=== PATIENT | male | born 1965 | race Caucasian/White ===

== ENCOUNTER 2016-07-17 09:20 | Emergency (ER) | payer OTHER ==
[2016-07-17 09:29] VITALS: PULSE 90; TEMP 98; BMI 43.0
--- NOTE | 2016-07-17 09:39 | PDOC ---
History of Present Illness - General Chief Complaint: Injury Stated Complaint: BACK PAIN S/P FALL Time Seen by Provider: 07/17/16 09:31 History Source: Patient Exam Limitations: No Limitations - History of Present Illness Initial Comments: 51 yo M history asthma presents with back and shoulder pain s/p mechanical fall. He states that he slipped on black ice, landing on his lower back. He states that he is pretty certain he did not hit his head, but that he feels as though his neck quickly moved. He c/o dizzy feeling. Denies RAZO, weakness, numbness. +Pain to L shoulder with ROM. +Pain to low back with ROM. Ambulating without difficulty. Past History - Past Medical History Allergies/Adverse Reactions: Allergies Allergy/AdvReac Type Severity Reaction Status Date / Time azithromycin [From Zithromax] Allergy Verified 07/17/16 09:22 Macrolide Antibiotics Allergy Verified 07/17/16 09:22 Home Medications: Ambulatory Orders Albuterol Sulfate Inhaler - [Ventolin HFA Inhaler -] 2 puff IH Q6H PRN #1 inhaler 07/17/16 Budesonide/Formeterol Fumarate [SYMBICORT 80/4.5mcg -] 1 inh PO BID 07/17/16 Fluticasone/Salmeterol [Advair 250-50 Diskus] 1 each IH DAILY #1 disk.w.dev Montelukast Na [Singulair -] 10 mg PO HS #30 tablet 07/17/16 Tiotropium [place] [Spiriva] 1 puff IH DAILY #1 inh 07/17/16 Asthma: Yes Hypercholesterolemia: Yes - Immunization History Immunization Up to Date: Yes - Psycho/Social/Smoking Cessation Hx Anxiety: No Suicidal Ideation: No Smoking History: Never smoked Have you smoked in the past 12 months: No Information on smoking cessation initiated: No Hx Alcohol Use: Yes (OCCASIONAL) Drug/Substance Use Hx: No Substance Use Type: None Hx Substance Use Treatment: No Review of Systems - Review of Systems Able to Perform ROS?: Yes Comments:: GENERAL/CONSTITUTIONAL: No fever or chills. No weakness. HEAD, EYES, EARS, NOSE AND THROAT: No change in vision. No ear pain or discharge. No sore throat. CARDIOVASCULAR: No chest pain or shortness of breath. RESPIRATORY: No cough, wheezing, or hemoptysis. GASTROINTESTINAL: No nausea, vomiting, diarrhea or constipation. GENITOURINARY: No dysuria, frequency, or change in urination. MUSCULOSKELETAL: No joint or muscle swelling or pain. +Low back pain. SKIN: No rash NEUROLOGIC: No headache, vertigo, loss of consciousness, or change in strength/ sensation. ENDOCRINE: No increased thirst. No abnormal weight change. HEMATOLOGIC/LYMPHATIC: No anemia, easy bleeding, or history of blood clots. ALLERGIC/IMMUNOLOGIC: No hives or skin allergy. *Physical Exam - Vital Signs Last Vital Signs Temp Pulse Resp BP Pulse Ox 98 F 90 16 142/107 100 07/17/16 09:25 07/17/16 09:25 07/17/16 09:25 07/17/16 09:25 07/17/16 09:25 - Physical Exam Comments: GENERAL: Awake, alert, and fully oriented, in no acute distress HEAD: No signs of trauma EYES: PERRLA, EOMI, sclera anicteric, conjunctiva clear ENT: Auricles normal inspection, hearing grossly normal, nares patent, oropharynx clear without exudates. Moist mucosa NECK: Normal ROM, supple, no lymphadenopathy, JVD, or masses LUNGS: Breath sounds equal, clear to auscultation bilaterally. No wheezes, and no crackles HEART: Regular rate and rhythm, normal S1 and S2, no murmurs, rubs or gallops ABDOMEN: Soft, nontender, normoactive bowel sounds. No guarding, no rebound. No masses EXTREMITIES: L shoulder with tenderness over the L anterior deltoids with muscle spasm, FROM. Remainder of extremities with normal range of motion, no edema. No clubbing or cyanosis. No cords, erythema, or tenderness NEUROLOGICAL: Cranial nerves II through XII grossly intact. Normal speech, normal gait. Motor and sensation intact. SKIN: Warm, Dry, normal turgor, no rashes or lesions noted. SPINE: +Mild midline tenderness C4-7, no stepoffs. +Midline tenderness L3-5, no stepoffs. Medical Decision Making - Medical Decision Making Obtained CTH, CT c-spine, XR l-spine, XR L shoulder, XR L clavicle- no acute findings. Stable for DC home. *DC/Admit/Observation/Transfer Diagnosis at time of Disposition: Contusion Qualifiers: Encounter type: initial encounter Contusion area: lower back Qualified Code(s) : S30.0XXA - Contusion of lower back and pelvis, initial encounter Low back strain Qualifiers: Encounter type: initial encounter Qualified Code(s): S39.012A - Strain of muscle, fascia and tendon of lower back, initial encounter Neck muscle strain Qualifiers: Encounter type: initial encounter Qualified Code(s): S16.1XXA - Strain of muscle, fascia and tendon at neck level, initial encounter Shoulder contusion Qualifiers: Encounter type: initial encounter Laterality: left Qualified Code(s): S40.012A - Contusion of left shoulder, initial encounter - Discharge Dispostion Disposition: HOME Condition at time of disposition: Stable Admit: No - Prescriptions Prescriptions: Fluticasone/Salmeterol [Advair 250-50 Diskus] 1 each IH DAILY #1 disk.w.dev Montelukast Na [Singulair -] 10 mg PO HS #30 tablet Tiotropium [place] [Spiriva] 1 puff IH DAILY #1 inh Albuterol Sulfate Inhaler - [Ventolin HFA Inhaler -] 2 puff IH Q6H PRN #1 inhaler PRN Reason: Short Of Breath/Wheezing - Patient Instructions Printed Discharge Instructions: DI for Cervical Muscle Strain, DI for Shoulder Pain, DI for Back Strain or Sprain
[2016-07-17] MEDS ORDERED: ACETAMINOPHEN 325 MG TABLET (FP) PO ONE (09:51)
[2016-07-17] MEDS ORDERED: ACETAMINOPHEN 325 MG TABLET (FP) ONE (09:58)
[2016-07-17 10:40] VITALS: BP 125/75
== END 2016-07-17 11:54 | disposition home or self-care (01) ==
LOC: FER 09:20
DX: S30.0XXA Contusion of lower back and pelvis, initial encounter (principal); S39.012A Strain of muscle, fascia and tendon of lower back, initial encounter; S16.1XXA Strain of muscle, fascia and tendon at neck level, initial encounter; S40.012A Contusion of left shoulder, initial encounter; W00.0XXA Fall on same level due to ice and snow, initial encounter; Y93.89 Activity, other specified; Y92.410 Unspecified street and highway as the place of occurrence of the external cause; J45.909 Unspecified asthma, uncomplicated; E78.00 Pure hypercholesterolemia, unspecified
CPT/HCPCS: 70450-TC; 72100-TC; 72125-TC; 73000-TC-LT; 73030-TC-LT; 99283-25

== ENCOUNTER 2016-07-29 14:57 | Emergency (ER) | payer OTHER ==
[2016-07-29 15:02] VITALS: BP 156/91; PULSE 102; TEMP 99.8; BMI 46.7
--- NOTE | 2016-07-29 15:16 | PDOC ---
History of Present Illness - General History Source: Patient Exam Limitations: No Limitations - History of Present Illness Initial Comments: 07/29/16 15:45 The patient is a 51 year old male, with a significant past medical history of asthma and hyperlipidemia, who presents to the emergency department complaining of a productive cough for approximately 1 week. The patient reports his cough is productive of yellow/green sputum.The patient reports his sputum has an odor. He reports voice hoarseness, chills, body aches, stiffness, and feeling generally tired. The patient reports he is currently living at a homeless fpc, where he has had exposure to sick contacts and smokers(although he has not inhaled the fumes). He states his muscle stiffness could be due to standing all day at his job. The patient denies any fever, headache, or dizziness. The patient denies any chest pain, shortness of breath, diaphoresis, or palpitations. The patient denies any abdominal pain, nausea, vomiting, diarrhea , constipation, or changes in urination patterns. The patient denies any recent travel Allergies: Azithromycin, Macrolide antibiotics Past Surgical History: None reported. Social History: Non-smoker. Denies alcohol or drug use. <Akiko Brian - Last Filed: 07/29/16 17:21> - General History Source: Patient Exam Limitations: No Limitations <Barbi Duncan - Last Filed: 07/31/16 07:59> - General Chief Complaint: Cold Symptoms Stated Complaint: COUGH Time Seen by Provider: 07/29/16 15:04 Past History <Akiko Brian - Last Filed: 07/29/16 17:21> - Past Medical History Asthma: Yes Hypercholesterolemia: Yes - Immunization History Immunization Up to Date: Yes - Psycho/Social/Smoking Cessation Hx Anxiety: No Suicidal Ideation: No Smoking History: Never smoked Have you smoked in the past 12 months: No Hx Alcohol Use: No Drug/Substance Use Hx: No Substance Use Type: None Hx Substance Use Treatment: No <Barbi Duncan - Last Filed: 07/31/16 07:59> - Past Medical History Allergies/Adverse Reactions: Allergies Allergy/AdvReac Type Severity Reaction Status Date / Time azithromycin [From Zithromax] Allergy Verified 07/29/16 14:58 Macrolide Antibiotics Allergy Verified 07/29/16 14:58 Home Medications: Ambulatory Orders Albuterol Sulfate Inhaler - [Ventolin HFA Inhaler -] 2 puff IH Q6H PRN #1 inhaler 07/17/16 Budesonide/Formeterol Fumarate [SYMBICORT 80/4.5mcg -] 1 inh PO BID 07/17/16 Fluticasone/Salmeterol [Advair 250-50 Diskus] 1 each IH DAILY #1 disk.w.dev Montelukast Na [Singulair -] 10 mg PO HS #30 tablet 07/17/16 Tiotropium [place] [Spiriva] 1 puff IH DAILY #1 inh 07/17/16 Albuterol 0.083% Nebulizer Lisa [Ventolin 0.083% Nebulizer Soln -] 1 neb NEB Q6H PRN #30 vial 07/29/16 Amoxicillin/Potassium Clav [Augmentin 875-125 Tablet] 1 each PO BID #14 tablet 07/29/16 Nebulizer/Compressor [Comp-Air Elite Comp Nebulizer] 1 each MC ASDIR PRN #1 each 07/29/16 Prednisone [Deltasone] 60 mg PO DAILY #12 tablet 07/29/16 Review of Systems - Review of Systems Able to Perform ROS?: Yes Comments:: 07/29/16 15:46 GENERAL/CONSTITUTIONAL: +Chills, +body aches, +tired. No: fever, weakness, loss of appetite. HEAD, EYES, EARS, NOSE AND THROAT: Yes: +voice hoarseness. No: change in vision , ear pain, discharge, sore throat, throat swelling. CARDIOVASCULAR: No: chest pain, lightheadedness, palpitations, syncope RESPIRATORY: Yes: +cough productive of odorous yellow/green sputum. No: shortness of breath, wheezing, hemoptysis, stridor. GASTROINTESTINAL: No: nausea, vomiting, abdominal cramping, diarrhea, rectal bleeding, constipation. GENITOURINARY: No: dysuria, hematuria, frequency, urgency, flank pain. MUSCULOSKELETAL: Yes: +muscle stiffness.No: back pain, neck pain, joint pain, muscle swelling SKIN AND BREASTS: No: lesions, pallor, rash or easy bruising. NEUROLOGIC: No: headache, vertigo, paresthesias, weakness ENDOCRINE: No: unexplained weight gain or loss HEMATOLOGIC/LYMPHATIC: No: anemia, easy bleeding, swelling nodes <Brian,Giomilsy - Last Filed: 07/29/16 17:21> *Physical Exam - Vital Signs Last Vital Signs Temp Pulse Resp BP Pulse Ox 99.8 F H 102 H 17 156/91 96 07/29/16 14:58 07/29/16 14:58 07/29/16 14:58 07/29/16 14:58 07/29/16 14:58 - Physical Exam Comments: 07/29/16 15:46 GENERAL: The patient is in no acute distress. HEAD: Normal with no signs of trauma. EYES: PERRLA, EOMI, sclera anicteric, conjunctiva clear. ENT: Ears normal, nares patent, oropharynx clear without exudates. Moist mucous membranes. NECK: Normal range of motion, supple without lymphadenopathy, JVD, or masses. LUNGS: [place] breath sounds bilaterally. No wheezes, and no crackles. HEART: Regular rate and rhythm, normal S1 and S2 without murmur, rub or gallop. ABDOMEN: Soft, nontender, normoactive bowel sounds. No guarding, no rebound. EXTREMITIES: Normal range of motion, no edema. No clubbing or cyanosis. No erythema, or tenderness. NEUROLOGICAL: Cranial nerves II through XII grossly intact. Normal speech. No focal neurological deficits. MUSCULOSKELETAL: Back non-tender to palpation, no CVA tenderness SKIN: Warm, Dry, normal turgor, no rashes or lesions noted. <Brian,Giomilsy - Last Filed: 07/29/16 17:21> - Vital Signs Last Vital Signs Temp Pulse Resp BP Pulse Ox 99.8 F H 102 H 17 156/91 96 07/29/16 14:58 07/29/16 14:58 07/29/16 14:58 07/29/16 14:58 07/29/16 14:58 <Barbi Duncan - Last Filed: 07/31/16 07:59> ED Treatment Course - LABORATORY CBC & Chemistry Diagram: 07/29/16 15:50 07/29/16 15:50 - RADIOLOGY Radiograph Interpretation: 07/29/16 17:21 EXAM: CXR INTERPRETED BY: Dr. Saunders REVIEWED BY: Dr. Duncan IMPRESSION: Bilateral perihilar increased lung marking without evidence of acute lung disease. - Medications Given in the ED: ED Medications Discontinued Medications Generic Name Dose Route Start Last Admin Trade Name Roldan PRN Reason Stop Dose Admin Albuterol/Ipratropium 1 amp 07/29/16 15:31 07/29/16 15:37 Duoneb - NEB 07/29/16 15:32 1 amp ONCE ONE Administration Prednisone 60 mg 07/29/16 15:28 07/29/16 15:37 Deltasone - PO 07/29/16 15:29 60 mg ONCE ONE Administration <Akiko Brian - Last Filed: 07/29/16 17:21> - LABORATORY CBC & Chemistry Diagram: 07/29/16 15:50 07/29/16 15:50 <Barbi Duncan - Last Filed: 07/31/16 07:59> Medical Decision Making - Medical Decision Making 07/29/16 15:16 A portion of this note was documented by scribe services under my direction. I have reviewed the details of the note, within reason, and agree with the documentation with the following case summary and management plan written by me. Nursing documentation reviewed and incorporated into medical decision making 07/29/16 17:10 This is a 51 yo M with a history of morbid obesity and asthma presents to the ER with a complaint of wheezing and productive cough Symptoms have been present for the past week HE has not been on either abx, steroids or abx (+) chills No chest pain No palpitations No lower extremity edema Pt currently is living in a fpc On examination Speaking in clear sentences Right Tonsillar enlargement, no exudate insp and exp wheezing tachycardiac, no murmur appreciated no abd tenderness no lower extremity edema Labs as expected for pt on steroids CXR : refused prior xray : no infiltrate Laboratory Tests 07/29/16 07/29/16 15:50 15:50 WBC 13.8 H D Hgb 14.2 D Hct 42.2 Plt Count 348 Neutrophils % 69.6 Lymphocytes % 21.2 BUN 15 D Creatinine 0.9 D 07/29/16 17:11 Will discharge to home follow up with [facility] Return to the ER for any other concerns or complaints Clinical Impression:Asthma Exacerbation <Barbi Duncan - Last Filed: 07/31/16 07:59> *DC/Admit/Observation/Transfer - Attestations Scribe Attestion: 07/29/16 15:47 Documentation prepared by Akiko Brian, acting as medical csr for Barbi Duncan MD. <Akiko Brian - Last Filed: 07/29/16 17:21> - Discharge Dispostion Admit: No <Barbi Duncan - Last Filed: 07/31/16 07:59> Diagnosis at time of Disposition: Acute exacerbation of COPD with asthma Asthma with exacerbation Qualifiers: Asthma severity: moderate persistent Qualified Code(s): J45.41 - Moderate persistent asthma with (acute) exacerbation - Discharge Dispostion Disposition: HOME Condition at time of disposition: Stable - Prescriptions Prescriptions: Amoxicillin/Potassium Clav [Augmentin 875-125 Tablet] 1 each PO BID #14 tablet Nebulizer/Compressor [Comp-Air Elite Comp Nebulizer] 1 each MC ASDIR PRN #1 each PRN Reason: congestion Prednisone [Deltasone] 60 mg PO DAILY #12 tablet Albuterol 0.083% Nebulizer Lisa [Ventolin 0.083% Nebulizer Soln -] 1 neb NEB Q6H PRN #30 vial PRN Reason: Wheezing - Patient Instructions Printed Discharge Instructions: DI for Viral Upper Respiratory Infection -- Adult, DI for Asthma -- Adult Additional Instructions: Mr. Sheriff Thank you for coming in to the ER Please take medications as prescribed Please monitor your temperature Please follow up with a primary care physician (you can go to [address] [place] [address] if you do not have a physician) Please consider following up with a pulmonary physician Please return to the ER if you do not improve
[2016-07-29] MEDS ORDERED: predniSONE 20 MG TABLET (UD) PO ONE (15:28)
[2016-07-29] MEDS ORDERED: ALBUTEROL SO4 2.5/IPRATROPIUM 0.5 INH SOL 3 ML VIAL.NEB. NEB ONE ×4 (15:31→16:02)
[2016-07-29] MEDS ORDERED: LEVOFLOXACIN 500 MG TABLET (FP) ONE (15:34)
[2016-07-29] MEDS ORDERED: LEVOFLOXACIN 250 MG TABLET (FP) ONE (15:34)
[2016-07-29] MEDS ORDERED: predniSONE 20 MG TABLET (UD) ONE (15:34)
[2016-07-29] MEDS ORDERED: LEVOFLOXACIN 250 MG TABLET (FP) PO ONE (15:39)
[2016-07-29 16:20] LABS: BASOPHIL 0.6 % (0-2.0); EOSINOPHIL 2.2 % (0-4.5); MCHC 33.6 g/dl (32.0-35.9); MEAN CELL VOLUME 86.5 fl (80-96); MEAN PLT VOLUME 8.2 fl (7.5-11.1); NEUTROPHILS 69.6 % (42.8-82.8); PLATELET COUNT 348 K/MM3 (134-434); RDW 15.1 % (11.9-15.9); WHITE BLOOD COUNT 13.8 K/mm3 (4.0-10.0)
[2016-07-29 16:45] LABS: ALBUMIN 3.8 g/dl (3.5-5.0); ALK PHOS 58 U/L (32-92); ANION GAP 5 (8-16); BILIRUBIN,TOTAL 0.5 mg/dl (0.2-1.0); CALCIUM 8.8 mg/dl (8.4-10.2); CO2 25 mmol/L (22-28); CREATININE 0.9 mg/dl (0.6-1.3); GLUCOSE,RANDOM 85 mg/dl (74-106); SGOT/AST 35 U/L (10-42); SGPT/ALT 23 U/L (10-40); TOT PROT 7.2 g/dl (6.4-8.3)
[2016-07-30] MEDS ORDERED: LEVOFLOXACIN 750 MG TABLET PO ONE (15:30)
== END 2016-07-29 17:33 | disposition home or self-care (01) ==
LOC: FER 14:57
PROC: 3E0F7GC Introduction of Other Therapeutic Substance into Respiratory Tract, Via Natural or Artificial Opening (ICD-10-PCS; principal; 2016-07-29)
DX: J45.41 Moderate persistent asthma with (acute) exacerbation (principal); J44.1 Chronic obstructive pulmonary disease with (acute) exacerbation; J45.909 Unspecified asthma, uncomplicated
CPT/HCPCS: 36415; 71020-TC; 80053; 85025; 94640; 99281-25

== ENCOUNTER 2016-08-29 19:08 | Emergency (ER) | payer OTHER ==
--- NOTE | 2016-08-29 19:14 | PDOC ---
History of Present Illness - History of Present Illness Initial Comments: 08/29/16 19:53 Patient is a 51 year old male who is presenting to the ED who is complaining of chronic discomfort to right lower extremity and difficulty ambulation since his fall on 07/17/16. Patient felt his symptoms were worse today after he went to work for the first time since the fall. The patient works as a cyber security consultant for [employer] and reports standing all day for 8-12 hours. Today the patient felt by the end of his shift he was unable to bear weight so he came in for evaluation. The patient also endorses some lower back pain and knee pain as well, for which he has been receiving physical therapy treatment. The patient has not seen an orthopedist for his pain. He has been taking aleve with mild relief. Denies any numbness, tingling, or weakness. PAST MEDICAL HISTORY: Asthma, HLD PAST SURGICAL HISTORY: no significant history FAMILY HISTORY: no pertinent history SOCIAL HISTORY: Pt lives with family and is employed. MEDICATIONS: reviewed ALLERGIES: As per nursing notes General: No fevers or chills, no weakness, no weight loss HEENT: No change in vision. No sore throat,. No ear pain CardioVascular: No chest pain or shortness of breath Respiratory:No cough, or wheezing. Gastrointestinal: no nausea, vomiting, diarrhea or constipation, No rectal bleeding Genitourinary: No dysuria, hematuria, or frequency Musculoskeletal: Right lower extremity discomfort, knee pain, lower back pain. No joint or muscle swelling Neurologic: No headache, vertigo, dizziness or loss of consciousness Psychiatric: nor depression Skin: No rashes or easy bruising Endocrine: no increased thirst or abnormal weight change Allergic: no skin or latex allergy All other systems reviewed and normal GENERAL: Morbidly obese male. The patient is awake, alert, and fully oriented, in no acute distress. HEAD: Normal with no signs of trauma. EYES: Pupils equal, round and reactive to light, extraocular movements intact, sclera anicteric, conjunctiva clear. EXTREMITIES: No calf tenderness. Bilateral mild venous stasis. Normal range of motion. Able to bare weight and walk without difficulty. Neurovascularly intact. NEUROLOGICAL: Normal speech, normal gait. PSYCH: Normal mood, normal affect. SKIN: Warm, Dry, normal turgor, no rashes or lesions noted. <Julissa Jennings - Last Filed: 08/29/16 19:53> - General History Source: Patient Exam Limitations: No Limitations - History of Present Illness Initial Comments: 08/29/16 21:21 Assessment and plan: This is a morbidly obese 51-year-old male who comes in complaining of the difficulty standing and ambulating. Patient fell approximately 12 days ago and since then has not been working. Patient's work involves standing and walking for 8-12 hours. Patient most likely has become deconditioned secondary to not performing his normal daily amount of activity. Patient attempted to go back to work today and by the end of his shift was very fatigued and felt like he could not stand and move as well as he did prior to his fall. Patient's exam was unremarkable for any acute pathology however secondary to his extreme obesity and deconditioning he was referred to an orthopedist and may need additional physical therapy or interventions prior to being able to return to work and to his job. <Uvaldo Harry I - Last Filed: 08/29/16 21:25> - General Chief Complaint: Pain Stated Complaint: LT LEG STRAIN Time Seen by Provider: 08/29/16 19:13 Past History <Julissa Jennings - Last Filed: 08/29/16 19:53> - Past Medical History Asthma: Yes Hypercholesterolemia: Yes - Immunization History Immunization Up to Date: Yes - Psycho/Social/Smoking Cessation Hx Anxiety: No Suicidal Ideation: No Smoking History: Never smoked Have you smoked in the past 12 months: No Hx Alcohol Use: No Drug/Substance Use Hx: No Substance Use Type: None Hx Substance Use Treatment: No <Uvaldo Harry I - Last Filed: 08/29/16 21:25> - Past Medical History Allergies/Adverse Reactions: Allergies Allergy/AdvReac Type Severity Reaction Status Date / Time azithromycin [From Zithromax] Allergy Verified 07/29/16 14:58 Macrolide Antibiotics Allergy Verified 07/29/16 14:58 Penicillins Allergy Verified 08/29/16 19:27 Home Medications: Ambulatory Orders Albuterol Sulfate Inhaler - [Ventolin HFA Inhaler -] 2 puff IH Q6H PRN #1 inhaler 07/17/16 Budesonide/Formeterol Fumarate [SYMBICORT 80/4.5mcg -] 1 inh PO BID 07/17/16 Fluticasone/Salmeterol [Advair 250-50 Diskus] 1 each IH DAILY #1 disk.w.dev Montelukast Na [Singulair -] 10 mg PO HS #30 tablet 07/17/16 Tiotropium [place] [Spiriva] 1 puff IH DAILY #1 inh 07/17/16 *Physical Exam - Vital Signs Last Vital Signs Temp Pulse Resp BP Pulse Ox 98.5 F 95 H 18 152/100 96 08/29/16 19:09 08/29/16 19:09 08/29/16 19:09 08/29/16 19:09 08/29/16 19:09 <Julissa Jennings - Last Filed: 08/29/16 19:53> *DC/Admit/Observation/Transfer - Attestations Scribe Attestion: 08/29/16 20:05 Documentation prepared by Julissa Jennings, acting as medical chief technician for Uvaldo Harry MD. <Julissa Jennings - Last Filed: 08/29/16 19:53> - Discharge Dispostion Admit: No <Uvaldo Harry I - Last Filed: 08/29/16 21:25> Diagnosis at time of Disposition: Strain of right knee Qualifiers: Encounter type: initial encounter Qualified Code(s): S86.911A - Strain of unspecified muscle(s) and tendon(s) at lower leg level, right leg, initial encounter - Discharge Dispostion Disposition: HOME Condition at time of disposition: Stable - Patient Instructions Additional Instructions: Continue to take ibuprofen or Aleve as needed for pain and instructed on the bottle. Follow-up with an orthopedist if you need an orthopedist call Dr. Whalen at for an appointment on Wednesday. Return to the emergency department immediately with ANY new, persistent or worsening symptoms. Continue any medications as previously prescribed by your physician. You should follow up with your primary doctor as soon as possible regarding today's emergency department visit. . Please make sure your doctor reviews the results of your emergency evaluation. Thank you for coming to the Emergency Department today for your care. It was a pleasure to see you today. Please note that your evaluation is INCOMPLETE until you follow-up with your doctor. - Post Discharge Activity Work/School Note: Back to Work
[2016-08-29 19:34] VITALS: BP 152/100; PULSE 95; TEMP 98.5; BMI 45.1
[2016-08-29] MEDS ORDERED: KETOROLAC TROMETHAMINE 60 MG/2 ML VIAL IM ONE (20:08)
[2016-08-29] MEDS ORDERED: KETOROLAC TROMETHAMINE 60 MG/2 ML VIAL ONE (20:12)
== END 2016-08-29 20:15 | disposition home or self-care (01) ==
LOC: FER 19:08
PROC: 3E0233Z Introduction of Anti-inflammatory into Muscle, Percutaneous Approach (ICD-10-PCS; principal; 2016-08-29)
DX: S86.911A Strain of unspecified muscle(s) and tendon(s) at lower leg level, right leg, initial encounter (principal); X58.XXXA Exposure to other specified factors, initial encounter; Y93.9 Activity, unspecified; Y92.9 Unspecified place or not applicable; Y99.0 Civilian activity done for income or pay; E66.01 Morbid (severe) obesity due to excess calories; Z68.42 Body mass index [BMI] 45.0-49.9, adult; E78.5 Hyperlipidemia, unspecified; J45.909 Unspecified asthma, uncomplicated
CPT/HCPCS: 99282-25

== ENCOUNTER 2016-10-26 15:15 | Emergency (ER) | payer OTHER ==
[2016-10-26 15:22] VITALS: BP 158/88; PULSE 100; TEMP 99; BMI 43.8
--- NOTE | 2016-10-26 15:25 | PDOC ---
History of Present Illness - General History Source: Patient Exam Limitations: No Limitations - History of Present Illness Initial Comments: 10/26/16 19:24 The patient is a 51 year old male, with a significant past medical history of asthma, hyperlipidemia, and HTN, who presents to the emergency department complaining of a productive cough for approximately 1 week. The patient reports his cough is productive of yellow/green sputum. The patient reports his sputum has an odor. He reports associated nasal congestion, subjective fevers, chills, body aches, stiffness, and feeling generally tired. He also reports 1x of diarrhea today. Patient states he was seen at another hospital a few days ago. He had chest x- ray done which came back negative. He was discharged after nebulizer treatment and IM steroids, but reports that his symptoms came back one hour after leaving the ED. The patient reports he is currently living at a homeless [facility]pc, where he has had exposure to sick contacts and smokers (although he has not inhaled the fumes ). 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 The patient denies any chest pain, diaphoresis, or palpitations. The patient denies any abdominal pain, nausea, vomiting, constipation, or changes in urination patterns. Pt denies any hemoptysis, leg swelling, night sweats, weight loss. Allergies: Azithromycin, Macrolide antibiotics Social History: Non-smoker. Drinks alcohol occasionally. Denies drug use. <Maik Harrington - Last Filed: 10/26/16 19:24> <Lambert Holland - Last Filed: 10/28/16 07:39> - General Chief Complaint: Respiratory Stated Complaint: COUGH Time Seen by Provider: 10/26/16 15:19 Past History <Maik Harrington - Last Filed: 10/26/16 19:24> - Past Medical History Asthma: Yes Hypercholesterolemia: Yes - Immunization History Immunization Up to Date: Yes - Psycho/Social/Smoking Cessation Hx Anxiety: No Suicidal Ideation: No Smoking History: Never smoked Have you smoked in the past 12 months: No Information on smoking cessation initiated: No Hx Alcohol Use: No Drug/Substance Use Hx: No Substance Use Type: None Hx Substance Use Treatment: No <Lambert Holland - Last Filed: 10/28/16 07:39> - Past Medical History Allergies/Adverse Reactions: Allergies Allergy/AdvReac Type Severity Reaction Status Date / Time azithromycin [From Zithromax] Allergy Verified 10/26/16 15:18 Macrolide Antibiotics Allergy Verified 10/26/16 15:18 Penicillins Allergy Verified 10/26/16 15:18 Home Medications: Ambulatory Orders Montelukast Na [Singulair -] 10 mg PO HS #30 tablet 07/17/16 Tiotropium [place] [Spiriva] 1 puff IH DAILY #1 inh 07/17/16 Albuterol Sulfate Inhaler - [Ventolin HFA Inhaler -] 2 puff IH Q6H PRN #1 inhaler 10/26/16 Budesonide/Formeterol Fumarate [SYMBICORT 80/4.5mcg -] 1 inh PO BID #1 unit Doxycycline Hyclate 100 mg PO BID #14 capsule 10/26/16 Fluticasone/Salmeterol [Advair 250-50 Diskus] 1 each IH BID #1 unit 10/26/16 Guaifenesin AC [Robitussin AC -] 5 ml PO TID #50 ml MDD 15 10/26/16 Prednisone [Deltasone -] 40 mg PO DAILY #8 tablet 10/26/16 Review of Systems - Review of Systems Comments:: 10/26/16 19:24 CONSTITUTIONAL: + subjective fevers, weakness. No reported: Chills, Diaphoresis, Generalized Malaise, Loss of Appetite HEENT: +Rhinorrhea, No reported: Nasal Congestion, Throat Pain, Throat Swelling, Difficulty Swallowing, Mouth Swelling, Ear Pain, Eye Pain, Visual Changes CARDIOVASCULAR: No reported: Chest Pain, Syncope, Palpitations, Irregular Heart Rate, Lightheadedness, Peripheral Edema RESPIRATORY: + cough, shortness of breath No reported: SOB with Exertion, Orthopnea, Wheezing, Stridor, Hemoptysis GASTROINTESTINAL: No reported: Abdominal pain, Abdominal Distension, Nausea, Vomiting, Diarrhea, Constipation, Melena, Hematochezia GENITOURINARY: No reported: Dysuria, Frequency, Urgency, Hesitancy, Flank Pain, Genital Pain MUSCULOSKELETAL: No reported: Myalgia, Arthralgia, Joint Swelling, Back pain, Neck Pain SKIN: No reported: Rash, Itching, Pallor HEMEATOLOGIC/IMMUNOLOGIC: No reported: Easy Bleeding, Easy Bruising, Lymphadenopathy, Frequent infections ENDOCRINE: No reported: Unexplained Weight Gain, Unexplained Weight Loss, Heat Intolerance , Cold Intolerance NEUROLOGIC: No reported: Headache, Focal Weakness, Paresthesias, Vertigo, Lightheadedness, Unsteady Gait, Seizure, Mental Status Changes, Incontinence PSYCHIATRIC: No reported: Anxiety, Depression <Maik Harrington - Last Filed: 10/26/16 19:24> *Physical Exam - Vital Signs Last Vital Signs Temp Pulse Resp BP Pulse Ox 99 F 100 H 24 158/88 98 10/26/16 15:15 10/26/16 15:15 10/26/16 15:15 10/26/16 15:15 10/26/16 15:15 - Physical Exam Comments: 10/26/16 19:24 GENERAL: The patient is awake, alert, and fully oriented, Nontoxic - in no acute distress. Obese. HEAD: Normocephalic, atraumatic. EYES: extraocular movements intact, sclera anicteric, conjunctiva clear. ENT: Normal voice, Moist mucous membranes. NECK: Normal range of motion, supple LUNGS: Mild Wheezing diffusely. Moving air well. No rhonchi, no rales. speaking complete sentecnes HEART: Regular rate and rhythm, without murmur, rub or gallop. ABDOMEN: Soft, nontender, normoactive bowel sounds. No guarding, no rebound.No CVA tenderness EXTREMITIES: Trace edema of the lower extremities. Normal range of motion. no calf tenderness, neg homans. NEUROLOGICAL: No facial assymetry, Normal speech, PSYCH: Normal mood, normal affect. SKIN: Warm, Dry, normal turgor, <Maik Harrington - Last Filed: 10/26/16 19:24> - Vital Signs Last Vital Signs Temp Pulse Resp BP Pulse Ox 99 F 100 H 24 158/88 98 10/26/16 15:15 10/26/16 15:15 10/26/16 15:15 10/26/16 15:15 10/26/16 15:15 <Lambert Holland - Last Filed: 10/28/16 07:39> Heart Score/ECG Review - ECG Impressions Comment:: 10/26/16 19:52 Twelve-lead EKG was performed and reviewed by me. There is normal sinus rhythm with a normal rate. Rate of 99 The axis is normal. Short ND interval There is normal R wave progression There are no ST or T wave abnormalities. <Lambert Holland - Last Filed: 10/28/16 07:39> ED Treatment Course - LABORATORY CBC & Chemistry Diagram: 10/26/16 14:55 10/26/16 14:55 <Maik Harrington - Last Filed: 10/26/16 19:24> - LABORATORY CBC & Chemistry Diagram: 10/26/16 14:55 10/26/16 14:55 <Lambert Holland - Last Filed: 10/28/16 07:39> Medical Decision Making - Medical Decision Making 10/26/16 16:27 51M y hx of asthma, htn, hl, presents with coughing x 4 days assocated with nasal congestion, body aches. cough productive of yellowish sputum, no associated fevers. on exam the pts lungs show mild wheezing w/o rales. pt has intermittent spasms of coughing. suspect viral bronchitis with mild astham exacerbain will give nebs, steroids will obtain cxr robitussin AC for cough will reassess A portion of this note was documented by scribe services under my direction. I have reviewed the details of the note, within reason, and agree with the documentation with the following case summary and management plan written by me 10/26/16 18:53 pts labs reviewed noted for mild leukocytosis likely due to steroid use suspect bronchitis with mild astham will give nebs, abluterol steroids, abx will d/c with pmd fu return precautions were discussed Return to the emergency department immediately with ANY new, persistent or worsening symptoms. You MUST call and follow up with your doctor tomorrow for further evaluation of your symptoms. Results were discussed with you. Please make sure your doctor reviews the results of your emergency evaluation. If you had any xrays during your visit, it was read preliminarily by myself, a Radiologist will review it and if there are any additional findings we will call you. <Lambert Holland - Last Filed: 10/28/16 07:39> *DC/Admit/Observation/Transfer - Attestations Scribe Attestion: 10/26/16 19:24 Documentation prepared by Maik Harrington, acting as medical artist for Lambert Holland MD, MD. <Maik Harrington - Last Filed: 10/26/16 19:24> - Discharge Dispostion Admit: No <Lambert Holland - Last Filed: 10/28/16 07:39> Diagnosis at time of Disposition: Bronchitis Asthma with exacerbation Qualifiers: Asthma severity: unspecified severity Qualified Code(s): J45.901 - Unspecified asthma with (acute) exacerbation - Discharge Dispostion Disposition: HOME Condition at time of disposition: Improved - Prescriptions Prescriptions: Fluticasone/Salmeterol [Advair 250-50 Diskus] 1 each IH BID #1 unit Prednisone [Deltasone -] 40 mg PO DAILY #8 tablet Doxycycline Hyclate 100 mg PO BID #14 capsule Guaifenesin AC [Robitussin AC -] 5 ml PO TID #50 ml MDD 15 Budesonide/Formeterol Fumarate [SYMBICORT 80/4.5mcg -] 1 inh PO BID #1 unit Albuterol Sulfate Inhaler - [Ventolin HFA Inhaler -] 2 puff IH Q6H PRN #1 inhaler PRN Reason: Short Of Breath/Wheezing - Referrals Referrals: [facility] [Provider Group] - Patient Instructions Printed Discharge Instructions: DI for Acute Bronchitis, DI for Asthma -- Adult Additional Instructions: Return to the emergency department immediately with ANY new, persistent or worsening symptoms. Use your medications as prescribed. You MUST call and follow up with your doctor tomorrow for further evaluation of your symptoms. Results were discussed with you. Please make sure your doctor reviews the results of your emergency evaluation. Print Language: BURUNDIAN
[2016-10-26] MEDS ORDERED: ALBUTEROL SO4 2.5/IPRATROPIUM 0.5 INH SOL 3 ML VIAL.NEB. NEB ONE (15:46)
[2016-10-26] MEDS ORDERED: IPRATROPIUM BR 0.02% 0.5 MG/2.5 ML VIAL.NEB. NEB ONE (15:57)
[2016-10-26] MEDS ORDERED: ALBUTEROL SO4 0.083% IH SOL 2.5 MG/3 ML VIAL.NEB. NEB ONE (15:57)
[2016-10-26 16:06] LABS: MCH 28.9 pg (25.7-33.7); MCHC 33.1 g/dl (32.0-35.9); MEAN CELL VOLUME 87.1 fl (80-96); PLATELET COUNT 384 K/MM3 (134-434); RDW 14.7 % (11.9-15.9); WHITE BLOOD COUNT 16.9 K/mm3 (4.0-10.8)
[2016-10-26 16:25] LABS: ALBUMIN 3.7 g/dl (3.5-5.0); ALK PHOS 54 U/L (32-92); ANION GAP 9 (8-16); BILIRUBIN,TOTAL 0.5 mg/dl (0.2-1.0); CALCIUM 8.7 mg/dl (8.4-10.2); CO2 24 mmol/L (22-28); CREATININE 0.8 mg/dl (0.6-1.3); GLUCOSE,RANDOM 95 mg/dl (74-106); SGOT/AST 43 U/L (10-42); SGPT/ALT 33 U/L (10-40); TOT PROT 6.6 g/dl (6.4-8.3)
[2016-10-26] MEDS ORDERED: predniSONE 20 MG TABLET (UD) PO ONE (16:25)
[2016-10-26] MEDS ORDERED: guaiFENesin/CODEINE 10 ML UNIT-DOSE CUPS PO ONE (16:26)
[2016-10-26] MEDS ORDERED: guaiFENesin/CODEINE 10 ML UNIT-DOSE CUPS ONE (16:36)
[2016-10-26] MEDS ORDERED: predniSONE 20 MG TABLET (UD) ONE (16:36)
[2016-10-26 16:48] LABS: PLATELET ESTIMATE ADEQUATE (NORMAL)
[2016-10-26] MEDS ORDERED: methylPREDNISolone NA SUCC 125 MG/2 ML VIAL ONE (16:50)
[2016-10-26] MEDS ORDERED: methylPREDNISolone NA SUCC 125 MG/2 ML VIAL IVPB ONE (16:50)
--- NOTE | 2016-10-27 11:42 | EKG ---
Test Reason : Blood Pressure : / mmHG Vent. Rate : 099 BPM Atrial Rate : 099 BPM P-R Int : 094 ms QRS Dur : 088 ms QT Int : 338 ms P-R-T Axes : 056 036 026 degrees QTc Int : 433 ms SINUS RHYTHM WITH SHORT DE OTHERWISE NORMAL ECG NO PREVIOUS ECGS AVAILABLE Confirmed by SHAISTA HERNANDEZ, JOHANNA ([id number]) on 10/27/2016 11:42:04 AM Referred By: PIPE Confirmed By:JOHANNA NOONAN MD
== END 2016-10-26 19:14 | disposition home or self-care (01) ==
LOC: FER 15:15
PROC: 3E0F7GC Introduction of Other Therapeutic Substance into Respiratory Tract, Via Natural or Artificial Opening (ICD-10-PCS; principal; 2016-10-26)
PROC: 3E033GC Introduction of Other Therapeutic Substance into Peripheral Vein, Percutaneous Approach (ICD-10-PCS; 2016-10-26)
DX: J40 Bronchitis, not specified as acute or chronic (principal); J45.901 Unspecified asthma with (acute) exacerbation
CPT/HCPCS: 36415; 71020-TC; 80053; 83880; 85025; 93005; 99283-25

== ENCOUNTER 2017-04-24 23:38 | Emergency (ER) | payer OTHER ==
[2017-04-24 23:46] VITALS: BP 180/98; PULSE 103; BMI 51.6
[2017-04-24] MEDS ORDERED: ALBUTEROL SO4 2.5/IPRATROPIUM 0.5 INH SOL 3 ML VIAL.NEB. NEB ONE ×2 (23:56→23:57)
--- NOTE | 2017-04-24 23:59 | PDOC ---
History of Present Illness - General Chief Complaint: Asthma Stated Complaint: ASTHMA Time Seen by Provider: 04/24/17 23:46 - History of Present Illness Initial Comments: This 52-year-old man presents with a few day history of progressive nonproductive cough and occasional wheezing. Patient has long history of asthma with occasional episodes of bronchitis. No recent hospitalizations for exacerbations of his asthma. Patient states that he has mild discomfort in his throat but no other symptoms of upper respiratory infection. He denies fever/ chills. 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 No gastrointestinal symptoms noted. Patient also has mildly tender, swollen, erythematous area around base of his left third finger. No history of trauma to the area. No history of purulent drainage from the nail. Patient does not chew his fingernails. Patient has been taking his medications as prescribed. Past History - Past Medical History Allergies/Adverse Reactions: Allergies Allergy/AdvReac Type Severity Reaction Status Date / Time azithromycin [From Zithromax] Allergy Verified 04/24/17 23:42 Macrolide Antibiotics Allergy Verified 04/24/17 23:42 Penicillins Allergy Verified 04/24/17 23:42 Home Medications: Ambulatory Orders Montelukast Na [Singulair -] 10 mg PO HS #30 tablet 07/17/16 Tiotropium [place] [Spiriva] 1 puff IH DAILY #1 inh 07/17/16 Albuterol Sulfate Inhaler - [Ventolin HFA Inhaler -] 2 puff IH Q6H PRN #1 inhaler 10/26/16 Budesonide/Formeterol Fumarate [SYMBICORT 80/4.5mcg -] 1 inh PO BID #1 unit Doxycycline Hyclate 100 mg PO BID #14 capsule 10/26/16 Fluticasone/Salmeterol [Advair 250-50 Diskus] 1 each IH BID #1 unit 10/26/16 Guaifenesin AC [Robitussin AC -] 5 ml PO TID #50 ml MDD 15 10/26/16 Prednisone [Deltasone -] 40 mg PO DAILY #8 tablet 10/26/16 Albuterol Sulfate 0.5% [Ventolin 0.5% Nebulizing Soln. -] 1 amp NEB QID #30 amp 04/25/17 Cephalexin [Keflex] 500 mg PO TID #15 capsule 04/25/17 Nebulizer [Aeroeclipse II] 1 each QID #1 each 04/25/17 Prednisone [Deltasone -] 40 mg PO DAILY #10 tablet 04/25/17 Asthma: Yes COPD: No Hypercholesterolemia: Yes - Immunization History Immunization Up to Date: Yes - Suicide/Smoking/Psychosocial Hx Smoking History: Never smoked Have you smoked in the past 12 months: No Information on smoking cessation initiated: Yes Hx Alcohol Use: Yes (OCCAS) Drug/Substance Use Hx: No Substance Use Type: None Hx Substance Use Treatment: No Review of Systems - Review of Systems Able to Perform ROS?: Yes Comments:: 12 point review of systems is negative except for what is noted in the history of present illness *Physical Exam - Vital Signs Last Vital Signs Temp Pulse Resp BP Pulse Ox 103 H 20 180/98 99 04/24/17 23:43 04/24/17 23:43 04/24/17 23:43 04/24/17 23:43 - Physical Exam Comments: GENERAL: Adult male, morbidly obese, speaking full sentences; in no respiratory distress HEAD: Normal with no signs of trauma. EYES: PERRLA, EOMI, sclera anicteric, conjunctiva clear. ENT: Ears normal, nares patent, oropharynx clear without exudates. Dry mucous membranes. NECK: Normal range of motion, supple without lymphadenopathy, JVD, or masses. LUNGS: Breath sounds equal, scattered expiratory wheezes bilaterally . no crackles. HEART:Regular rate and rhythm, normal S1 and S2 without murmur, rub or gallop. ABDOMEN:.normal bowel sounds No guarding,tenderness or rebound.No masses No distention. EXTREMITIES: Left third finger-mild erythema/edema/tenderness at base of nail fold; no fluctuance or purulence evident Remainder of the extremity exam is normal NEUROLOGICAL: Cranial nerves II through XII grossly intact. Normal speech. No focal neurological deficits. MUSCULOSKELETAL: Back non-tender to palpation, no CVA tenderness SKIN: Warm, Dry, normal turgor, no rashes or lesions noted. 04/25/17 04:54 Progress Note - Progress Note Progress Note: DuoNeb treatment given. Repeat exam revealed excellent air exchange without further expiratory wheezing. Patient will also be treated with prednisone 20 mg now with course of 20 mg twice a day for the next 5 days sent to his pharmacy. Patient does not have a nebulizer at home and prescriptions for nebulizer and albuterol nebulizer solution sent to his pharmacy. There is also evidence that patient has early paronychia of the left third finger : Patient has been instructed to soak his left third finger in warm water for 10-15 minutes at least twice a day. Also be given Keflex 500 mg 3 times a day prescription. First dose of Keflex administered here in emergency room. *DC/Admit/Observation/Transfer Diagnosis at time of Disposition: Paronychia of finger of left hand Asthmatic bronchitis Qualifiers: Asthma severity: mild Asthma persistence: intermittent Asthma complication type : with acute exacerbation Qualified Code(s): J45.21 - Mild intermittent asthma with (acute) exacerbation - Discharge Dispostion Disposition: HOME Condition at time of disposition: Stable - Prescriptions Prescriptions: Albuterol Sulfate 0.5% [Ventolin 0.5% Nebulizing Soln. -] 1 amp NEB QID #30 amp Cephalexin [Keflex] 500 mg PO TID #15 capsule Nebulizer [Aeroeclipse II] 1 each MC QID #1 each Prednisone [Deltasone -] 40 mg PO DAILY #10 tablet - Referrals - Patient Instructions Printed Discharge Instructions: Paronychia, Asthma -- Adult Additional Instructions: continue medications as prescribed Prednisone 20 mg twice a day for 5 days Albuterol nebulizer treatment 4 times a day as needed for wheezing Soak left third finger in warm water for 10 minutes 3 times a day Keflex 500 mg 3 times a day for 5 days Follow-up with your doctor within the next 3-4 days No work tonight or tomorrow Return to ER for severe difficulty breathing or high fever - Post Discharge Activity Forms/Work/School Notes: Back to Work
[2017-04-25] MEDS ORDERED: CEPHALEXIN MONOHYDRATE 500 MG CAPSULE (UD) PO ONE (00:18)
[2017-04-25] MEDS ORDERED: predniSONE 20 MG TABLET (UD) PO ONE ×2 (00:21→00:23)
[2017-04-25] MEDS ORDERED: CEPHALEXIN MONOHYDRATE 500 MG CAPSULE (UD) ONE (00:21)
[2017-04-25] MEDS ORDERED: predniSONE 20 MG TABLET (UD) ONE (00:22)
== END 2017-04-25 00:33 | disposition home or self-care (01) ==
LOC: FER 23:38
PROC: 3E0F7GC Introduction of Other Therapeutic Substance into Respiratory Tract, Via Natural or Artificial Opening (ICD-10-PCS; principal; 2017-04-24)
DX: L03.012 Cellulitis of left finger (principal)
CPT/HCPCS: 99281-25